=== PATIENT | male | born 1955 | race Caucasian/White ===

== ENCOUNTER 2021-11-30 08:55 | Observation (INO) | payer MEDICARE ==
[2021-11-30 09:42] LABS: #Basophils 0.1 10x3/uL (0.0-0.2); #Eosinphils 0.2 10x3/uL (0.0-0.5); #Monocytes 0.7 10x3/uL (0.0-1.1); #Neutrophils 4.7 10x3/uL (1.5-8.4); %Basophils 0.8 % (0.0-2.0); %Eosinophils 2.3 % (0.0-6.0); %Lymphocytes 44.3 % (18.0-47.0); %Monocytes 6.7 % (0.0-10.0); %Neutrophils 45.7 % (40.0-75.0); Hemoglobin 16.7 g/dL (13.5-17.5); Mean Corpuscular HGB CONC 32.8 g/dL (32.0-36.0); Mean Corpuscular Hemoglobin 29.2 pg (27.0-33.0); Mean Corpuscular Volume 89.1 fl (81.2-95.1); Mean Platelet Volume 11.7 fl (7.4-10.4); Platelet Count 221 10x3/uL (150-450); RBC Distribution Width 13.2 % (11.5-14.5); Red Blood Cell (RBC) Count 5.71 10x6/uL (4.32-5.72); White Blood Cell (WBC) Count 10.3 10x3/uL (3.5-10.5)
[2021-11-30 09:59] LABS: ALT (SGPT) 58 U/L (8-55); Albumin 4.2 g/dL (3.4-4.8); Alkaline Phosphatase 106 U/L (40-110); Anion Gap 17 mmol/L (10-20); BUN (Urea Nitrogen) 22 mg/dL (8.4-25.7); Bilirubin, Total 0.9 mg/dL (0.2-1.2); Calc. Creatinine Clearance 0 mL/min (70-130); Carbon Dioxide 22 mmol/L (23-31); Chloride 106 mmol/L (98-107); Estimated GFR 47; Globulin 3.2 g/dL (2.4-3.5); Glucose 174 mg/dL (80-115); Potassium 5.3 mmol/L (3.5-5.1); Protein, Total 7.4 g/dL (5.8-8.1); Sodium 140 mmol/L (136-145)
[2021-11-30 10:17] LABS: AST (SGOT) 42 U/L (5-34)
[2021-11-30] MEDS ORDERED: Nitroglycerin 0.4 MG TAB (25 Tab Bottle) SL PRN (12:25)
[2021-11-30] MEDS ORDERED: Dextrose 5% in Water 1,000 ML IV PRN (12:25)
[2021-11-30] MEDS ORDERED: Dextrose 50% Abboject 50 ML SYRINGE SLOW IVP PRN (12:25)
[2021-11-30] MEDS ORDERED: Insulin Regular 300 UNITS/3 ML VIAL SC PRN ×2 (12:25)
[2021-11-30] MEDS ORDERED: Calcium Carbonate 500 MG ChewTAB PO PRN (12:28)
[2021-11-30] MEDS ORDERED: Ondansetron PF 4 MG/2 ML Vial IVP PRN (12:28)
[2021-11-30] MEDS ORDERED: Senokot S 8.6-50 MG TAB PO PRN (12:28)
[2021-11-30] MEDS ORDERED: Acetaminophen 325 MG TAB PO PRN (12:28)
[2021-11-30] MEDS ORDERED: Ondansetron ODT 4 MG TAB PO PRN (12:28)
[2021-11-30] MEDS ORDERED: Aspirin 81 mg Enteric Coated Tablet PO SCH (12:45)
[2021-11-30] MEDS ORDERED: NPH, Human Insulin Isophane 300 UNIT/3 ML VIAL SC SCH ×2 (13:00→21:00)
[2021-11-30 13:01] LABS: Magnesium 1.9 mg/dL (1.6-2.6)
[2021-11-30 13:11] LABS: Troponin I Less than 0.010 ng/mL (< 0.028)
[2021-11-30] MEDS: Nitroglycerin 2% Ointment 1 INCH/1 GM Packet TOP SCH ×2 (13:30→20:32)
[2021-11-30 16:10] LABS: Troponin I Less than 0.010 ng/mL (< 0.028)
[2021-11-30] MEDS ORDERED: hydrALAZINE 20 MG/ML VIAL SLOW IVP PRN (17:20)
[2021-11-30] MEDS ORDERED: Amlodipine 10 MG TAB PO SCH (17:30)
[2021-11-30] MEDS ORDERED: Magnesium 2 GM/50 ML(in water) 2 GM in Premix Bag 1 BAG IVPB SCH (18:00)
[2021-11-30] MEDS: Acetaminophen 325 MG TAB PO PRN (20:31)
[2021-11-30 20:59] VITALS: BMI 30.9
[2021-11-30] MEDS ORDERED: Famotidine 20 MG TAB PO SCH (21:00)
[2021-11-30] MEDS ORDERED: Atorvastatin Calcium 40 MG TAB PO SCH (21:00)
[2021-12-01 05:00] LABS: Anion Gap 14 mmol/L (10-20); BUN (Urea Nitrogen) 20 mg/dL (8.4-25.7); Calc. Creatinine Clearance 76 mL/min (70-130); Calcium 8.6 mg/dL (7.8-10.44); Carbon Dioxide 22 mmol/L (23-31); Chloride 107 mmol/L (98-107); Estimated GFR 58; Glucose 177 mg/dL (80-115); Potassium 4.4 mmol/L (3.5-5.1); Sodium 139 mmol/L (136-145)
[2021-12-01] MEDS: Acetaminophen 325 MG TAB PO PRN (05:56)
[2021-12-01] MEDS: Nitroglycerin 2% Ointment 1 INCH/1 GM Packet TOP SCH (06:00)
[2021-12-01 07:11] LABS: SARS-CoV-2 NAA Rapid Test Not Detected (NotDetected)
[2021-12-01] MEDS ORDERED: Heparin 10,000 UNITS/ 10 ML VIAL ONE (08:25)
[2021-12-01] MEDS ORDERED: Lidocaine 1% 20 ML MDV ONE (08:25)
[2021-12-01] MEDS ORDERED: Lidocaine 1% MPF 2 ML VIAL ONE (08:25)
[2021-12-01] MEDS ORDERED: Nitroglycerin 50 MG/250 ML BOT 250 ML ONE (08:25)
[2021-12-01] MEDS ORDERED: Verapamil 5 MG/2 ML VIAL ONE (08:26)
[2021-12-01] MEDS ORDERED: Adenosine 6 MG/2 ML VIAL ONE (08:26)
[2021-12-01] MEDS ORDERED: Sodium Chloride 0.9% 1,000 ML ONE (08:27)
[2021-12-01] MEDS ORDERED: Bivalirudin 250 MG VIAL ONE (08:27)
[2021-12-01] MEDS ORDERED: Amlodipine 10 MG TAB PO SCH (09:00)
[2021-12-01] MEDS ORDERED: Empagliflozin 25 MG TAB PO SCH (09:00)
[2021-12-01] MEDS ORDERED: Aspirin 81 mg Enteric Coated Tablet PO SCH (09:00)
[2021-12-01] MEDS ORDERED: Midazolam HCl 2 mg/2 ml Vial ONE (09:19)
[2021-12-01] MEDS ORDERED: Fentanyl 100 MCG/2 ML VIAL ONE (09:19)
[2021-12-01] MEDS ORDERED: Sodium Chloride 0.9% 200 ML IV PRN (10:36)
[2021-12-01] MEDS ORDERED: Nitroglycerin 0.4 MG TAB (25 Tab Bottle) SL PRN (10:36)
[2021-12-01] MEDS ORDERED: Acetaminophen/Codeine 30-300mg Tablet PO PRN (10:36)
[2021-12-01] MEDS ORDERED: Sodium Chloride 0.9% 1,000 ML IV SCH (10:45)
[2021-12-01] MEDS ORDERED: Iopamidol 300 61% 100 ML VIAL FS ONE (10:54)
[2021-12-01 13:00] VITALS: BP 138/89; TEMP 97.9
== END 2021-12-01 15:45 | disposition home or self-care (01) ==
LOC: CSHERS 08:55 → CSHTELE 10:28 → INTOOBSV 10:28 → CSHTELE 15:11 → UNDOADMIN 15:11
PROVIDERS: ADMIT Internal Medicine; ATTEND Internal Medicine
PROC: 4A023N7 Measurement of Cardiac Sampling and Pressure, Left Heart, Percutaneous Approach (ICD-10-PCS; principal; 2021-12-01)
PROC: B201YZZ Plain Radiography of Multiple Coronary Arteries using Other Contrast (ICD-10-PCS; 2021-12-01)
DX: I25.10 Atherosclerotic heart disease of native coronary artery without angina pectoris (principal); E78.5 Hyperlipidemia, unspecified; K21.9 Gastro-esophageal reflux disease without esophagitis; I12.9 Hypertensive chronic kidney disease with stage 1 through stage 4 chronic kidney disease, or unspecified chronic kidney disease; E11.22 Type 2 diabetes mellitus with diabetic chronic kidney disease; N18.30 Chronic kidney disease, stage 3 unspecified; E87.5 Hyperkalemia; Z20.822 Contact with and (suspected) exposure to COVID-19; G47.33 Obstructive sleep apnea (adult) (pediatric); Z88.5 Allergy status to narcotic agent; Z79.82 Long term (current) use of aspirin; Z79.4 Long term (current) use of insulin; Z79.899 Other long term (current) drug therapy
CPT/HCPCS: 71045; 80048; 80053; 82962 ×2; 83735; 84484 ×2; 85025; 93005; 93458; 94760; 96374; 99285; C1769; C1894; G0378 ×3; U0002; 36415; 36416; 99152; J0153; J0583; J1644; J1815; J2250; J3010; J3475; J7050; Q9967

== ENCOUNTER 2022-11-21 09:07 | Observation (INO) | payer MEDICARE ==
[2022-11-21] MEDS ORDERED: Nitroglycerin 2% Ointment 1 INCH/1 GM Packet ONE (09:33)
[2022-11-21 10:26] LABS: #Basophils 0.1 10x3/uL (0.0-0.2); #Eosinphils 0.2 10x3/uL (0.0-0.5); #Monocytes 0.6 10x3/uL (0.0-1.1); #Neutrophils 3.8 10x3/uL (1.5-8.4); %Basophils 0.6 % (0.0-2.0); %Eosinophils 2.5 % (0.0-6.0); %Lymphocytes 45.2 % (18.0-47.0); %Monocytes 7.1 % (0.0-10.0); %Neutrophils 44.5 % (40.0-75.0); Hematocrit 45.7 % (38.8-50.0); Hemoglobin 15.2 g/dL (13.5-17.5); Mean Corpuscular HGB CONC 33.3 g/dL (32.0-36.0); Mean Corpuscular Hemoglobin 29.7 pg (27.0-33.0); Mean Corpuscular Volume 89.3 fl (81.2-95.1); Mean Platelet Volume 11.1 fl (7.4-10.4); Platelet Count 215 10x3/uL (150-450); RBC Distribution Width 12.9 % (11.5-14.5); Red Blood Cell (RBC) Count 5.12 10x6/uL (4.32-5.72); White Blood Cell (WBC) Count 8.5 10x3/uL (3.5-10.5)
[2022-11-21 11:09] LABS: ALT (SGPT) 50 U/L (8-55); AST (SGOT) 31 U/L (5-34); Alkaline Phosphatase 124 U/L (40-110); Anion Gap 17 mmol/L (10-20); BUN (Urea Nitrogen) 26 mg/dL (8.4-25.7); Calc. Creatinine Clearance 0 mL/min (70-130); Calcium 8.8 mg/dL (7.8-10.44); Carbon Dioxide 17 mmol/L (23-31); Chloride 110 mmol/L (98-107); Estimated GFR 57; Globulin 2.9 g/dL (2.4-3.5); Glucose 157 mg/dL (80-115); Lipase 42 U/L (8-78); Potassium 4.4 mmol/L (3.5-5.1); Protein, Total 6.9 g/dL (5.8-8.1); Sodium 140 mmol/L (136-145)
[2022-11-21 11:15] LABS: Troponin I Less than 0.010 ng/mL (< 0.028)
[2022-11-21] MEDS ORDERED: Acetaminophen 325 MG TAB PO PRN (12:27)
[2022-11-21 13:09] LABS: Troponin I Less than 0.010 ng/mL (< 0.028)
[2022-11-21 15:23] VITALS: BMI 31.6
[2022-11-21 16:50] LABS: Troponin I Less than 0.010 ng/mL (< 0.028)
[2022-11-21 19:59] LABS: Hemoglobin A1c 7.6 % (4.0-6.0)
[2022-11-21] MEDS ORDERED: Dextrose 50% Abboject 50 ML SYRINGE SLOW IVP PRN (21:23)
[2022-11-21] MEDS ORDERED: Dextrose 5% in Water 1,000 ML IV PRN (21:23)
[2022-11-21] MEDS ORDERED: Glucagon 1 MG/ML KIT IM PRN (21:23)
[2022-11-21] MEDS ORDERED: Atorvastatin Calcium 40 MG TAB PO SCH (21:30)
[2022-11-21] MEDS ORDERED: Metoprolol Tartrate 25 MG TAB PO SCH (22:30)
[2022-11-21] MEDS ORDERED: Insulin NPH Human Isophane 100 UNITS/ML (10 ML VIAL) SC SCH (22:30)
[2022-11-22 04:45] LABS: Cardiac Risk 3.9 (Less than 4.5)
[2022-11-22] MEDS: Losartan Potassium 50 MG TAB PO SCH (09:21)
[2022-11-22] MEDS: Aspirin Chewable 81 MG TAB PO SCH (09:22)
[2022-11-22] MEDS: Isosorbide Dinitrate 20 MG TAB PO SCH (10:03)
[2022-11-22] MEDS: HumaLOG 300 UNITS/3 ML VIAL SC PRN (17:56)
[2022-11-22] MEDS ORDERED: Atorvastatin Calcium 40 MG TAB PO SCH (21:00)
[2022-11-22] MEDS: Metoprolol Tartrate 25 MG TAB PO SCH (21:38)
[2022-11-23] MEDS ORDERED: Insulin NPH Human Isophane 100 UNITS/ML (10 ML VIAL) SQ SCH (08:00)
[2022-11-23] MEDS ORDERED: CO Q-10 CAPSULE 50 MG PO SCH (09:00)
[2022-11-23] MEDS: Losartan Potassium 50 MG TAB PO SCH (09:04)
[2022-11-23] MEDS: Aspirin Chewable 81 MG TAB PO SCH (09:04)
[2022-11-23] MEDS: Isosorbide Dinitrate 20 MG TAB PO SCH (09:04)
[2022-11-23] MEDS: Metoprolol Tartrate 25 MG TAB PO SCH (09:04)
[2022-11-23] MEDS: HumaLOG 300 UNITS/3 ML VIAL SC PRN (12:40)
[2022-11-23 16:28] VITALS: BP 139/76; TEMP 97.9
[2022-11-29] MEDS ORDERED: SEMAGLUTIDE 0.25 MG/0.368 ML SQ SCH (09:00)
== END 2022-11-23 16:28 | disposition home or self-care (01) ==
LOC: CSHERS 09:07 → CSHTELE 12:27
PROVIDERS: ADMIT Internal Medicine; ATTEND Internal Medicine
DX: R07.2 Precordial pain (principal); R10.13 Epigastric pain; I25.10 Atherosclerotic heart disease of native coronary artery without angina pectoris; E78.5 Hyperlipidemia, unspecified; I12.9 Hypertensive chronic kidney disease with stage 1 through stage 4 chronic kidney disease, or unspecified chronic kidney disease; N18.30 Chronic kidney disease, stage 3 unspecified; E11.22 Type 2 diabetes mellitus with diabetic chronic kidney disease; K21.9 Gastro-esophageal reflux disease without esophagitis; E66.9 Obesity, unspecified; Z95.5 Presence of coronary angioplasty implant and graft; Z79.02 Long term (current) use of antithrombotics/antiplatelets; Z79.4 Long term (current) use of insulin; Z68.31 Body mass index [BMI] 31.0-31.9, adult; Z88.5 Allergy status to narcotic agent; Z88.8 Allergy status to other drugs, medicaments and biological substances; Z79.899 Other long term (current) drug therapy
CPT/HCPCS: 71045; 74176; 80053; 80061; 82962 ×3; 83036; 83690; 83880; 84484 ×2; 85025; 93005; 93306; 96372 ×3; 99285; G0378 ×4; J1815; 36415; 36416; J1650

== ENCOUNTER 2022-12-28 10:07 | Outpatient (CLI) | payer MEDICARE ==
[2022-12-28] MEDS ORDERED: Magnevist 469MG/ML 20 ML VIAL ONE (13:51)
== END 2022-12-28 10:08 | disposition home or self-care (01) ==
LOC: CSHMRI 10:07
PROVIDERS: ATTEND Physician Assistant Medical
DX: R79.89 Other specified abnormal findings of blood chemistry (principal); R10.12 Left upper quadrant pain; K86.2 Cyst of pancreas
CPT/HCPCS: 74183; 82565